=== PATIENT | female | born 1980 | race Caucasian/White ===

== ENCOUNTER 2018-06-25 13:10 | Inpatient (IN) | payer MEDICAID, OTHER ==
--- NOTE | 2018-06-25 13:10 | EDPHY ---
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 Prior history of suicide attempt. Denies current or recent attempt . History of bipolar disorder. Denies cutting burning behavior , or similar. No complaints of physical pain. REVIEW OF SYSTEMS: 10 systems reviewed and negative with the exception of the elements mentioned in the history of present illness PAST MEDICAL & SURGICAL HISTORY: Bipolar disorder. Transgender female. Hyperlipidemia. Type 2 diabetes SOCIAL HISTORY: Nonsmoker. No drug use PHYSICAL EXAM (Prior to examination, patient consented to physical exam, hands were washed and my usual and customary physical exam procedures followed) 1) GENERAL: Well-developed, well-nourished, alert and oriented. Appears to be in no acute distress. 2) HEAD: Normocephalic, atraumatic 3) HEENT: Pupils equal, round, reactive to light bilaterally. Sclera anicteric. 4) NECK: Full range of motion, no meningeal signs. 5) LUNGS: Clear auscultation bilaterally, no wheezes, no rhonchi, no retractions. 6) HEART: Regular rate and rhythm, no murmur, no heave, no gallop. 7) ABDOMEN: No guarding, no rebound, no focal tenderness, negative McBurney's, negative Bolden's, negative Rovsing's, negative peritoneal sign, 8) MUSCULOSKELETAL: Moving all extremities, no focal areas of tenderness, no obvious trauma. No peripheral edema or discoloration. 9) BACK: No CVA tenderness, no midline vertebral tenderness, no fluctuance, no step-off, no obvious trauma, no visual or palpable abnormality. 10) SKIN: No rash, no petechiae. 11) Psychiatric: Patient is oriented X 3, there is no agitation. Calm cooperative answering questions appropriately DIFFERENTIAL DIAGNOSIS: In no particular order including but not limited to suicidal ideation homicidal ideation, depression (Jessie,D Maria A) Constitutional: Initial Vital Signs Temperature (C) 36.8 C 06/25/18 13:21 Heart Rate 91 10/03/18 13:21 Respiratory Rate 16 06/25/18 13:21 Blood Pressure 133/93 H 06/25/18 13:21 O2 Sat (%) 94 06/25/18 13:21 O2 Delivery Mode Room Air Allergies/Adverse Reactions: No Known Allergies Allergy (Unverified 06/25/18 13:31) Home Medications: Medication Instructions Recorded ARIPiprazole [Abilify 10 mg (*)] 10 mg PO DAILY 06/25/18 Albuterol [Proventil Inhaler HFA 1 - 2 puffs IH Q4H PRN 06/25/18 (*)] Atorvastatin Calcium [Lipitor 20 20 mg PO HS 06/25/18 mg (*)] Dextroamphetamine/Amphetamine 30 mg PO DAILY 06/25/18 [Adderall Xr 30 mg Capsule] Dutasteride [Avodart 0.5 MG (*)] 0.5 mg PO DAILY 06/25/18 Estradiol Cypionate 0.6 mg IM FR 06/25/18 [Depo-Estradiol] Fenofibrate [Tricor 145 mg (*)] 145 mg PO DAILY 06/25/18 Fluticasone Propionate [Flonase 1 spray EACHNARE DAILY PRN 06/25/18 Allergy Relief] Insulin Aspart [novoLOG] 30 unit SC TIDMEAL PRN 06/25/18 Insulin Detemir [Levemir] 40 unit SQ BID 06/25/18 Sertraline HCl [Zoloft 100mg (*)] 100 mg PO DAILY 06/25/18 Sertraline HCl [Zoloft 25mg (*)] 25 mg PO DAILY 06/25/18 Spironolactone [Aldactone 50 MG 50 mg PO BID 06/25/18 (RX)] busPIRone [Buspar (*)] 15 mg PO BID 06/25/18 traZODone [traZODONE 100MG (*)] 100 mg PO HS 06/25/18 Medical Decision Making ED Course/Re-evaluation: 5:00 p.m.: Re-evaluation with serial exams. Patient has known history type 2 diabetes. Serum glucose is elevated. She has normal anion gap. Doubt DKA. Care of patient turned over to Dr. Sid Plaza at this time, awaiting mental health evaluation completion. (Sonja Roman) Other Provider: Care assumed from Dirk at 2:45 p.m. With plan for psychiatric evaluation , has been medically cleared. 1800: The patient will be transferred to [facility] for inpatient psychiatric hospital bed not available at this facility, in stable condition; accepting provider is Eulalio Simpson. EMTALA form completed. PHYSICIAN DOCUMENTATION: The patient was evaluated and managed by the Physician Photographic Lithographer and myself. I have reviewed the chart and agree with the findings and plan of care as documented. In addition, I examined the patient myself at 1800. History confirmed as worsening depression with history of bipolar. Physical findings as follows: Alert and cooperative eating and watching television. Patient is calm , states she understands the plan. Glucose 410 prior to transfer. Patient was given their usual insulin prior to transfer. I am the secondary supervising physician. (Sid Plaza) - Data Points Laboratory Results: Laboratory Results 06/25/18 13:15 06/25/18 13:15 06/25/18 06/25/18 06/25/18 18:19 13:15 13:15 WBC RBC Hgb Hct MCV MCH MCHC RDW Plt Count MPV Neut % (Auto) Lymph % (Auto) [place] % (Auto) Eos % (Auto) Baso % (Auto) Nucleat RBC Rel Count Absolute Neuts (auto) Absolute Lymphs (auto) Absolute Monos (auto) Absolute Eos (auto) Absolute Basos (auto) Absolute Nucleated RBC Immature Gran % Immature Gran # Sodium Potassium Chloride Carbon Dioxide Anion Gap BUN Creatinine Estimated GFR Glucose POC Glucose 410 mg/dL H mg/dL (70-100) Calcium Urine Opiates Screen NEGATIVE (NEGATIVE) Urine Barbiturates NEGATIVE (NEGATIVE) Ur Phencyclidine Scrn NEGATIVE (NEGATIVE) Ur Amphetamine Screen NON-NEGATIVE H (NEGATIVE) U Benzodiazepines Scrn NEGATIVE (NEGATIVE) Urine Cocaine Screen NEGATIVE (NEGATIVE) U Marijuana (THC) Screen NON-NEGATIVE H (NEGATIVE) Ethyl Alcohol < 10 mg/dL mg/dL (0-10) 06/25/18 06/25/18 13:15 13:15 WBC 13.02 10^3/uL H 10^3/uL (3.80-9.50) RBC 5.25 10^6/uL 10^6/uL (4.18-5.33) Hgb 15.8 g/dL g/dL (12.6-16.3) Hct 44.8 % % (38.0-47.0) MCV 85.3 fL fL (81.5-99.8) MCH 30.1 pg pg (27.9-34.1) MCHC 35.3 g/dL g/dL (32.4-36.7) RDW 12.7 % % (11.5-15.2) Plt Count 195 10^3/uL 10^3/uL (150-400) MPV 11.2 fL fL (8.7-11.7) Neut % (Auto) 78.5 % H % (39.3-74.2) Lymph % (Auto) 15.4 % % (15.0-45.0) [place] % (Auto) 4.5 % % (4.5-13.0) Eos % (Auto) 0.6 % % (0.6-7.6) Baso % (Auto) 0.5 % % (0.3-1.7) Nucleat RBC Rel Count 0.0 % % (0.0-0.2) Absolute Neuts (auto) 10.22 10^3/uL H 10^3/uL (1.70-6.50) Absolute Lymphs (auto) 2.00 10^3/uL 10^3/uL (1.00-3.00) Absolute Monos (auto) 0.58 10^3/uL 10^3/uL (0.30-0.80) Absolute Eos (auto) 0.08 10^3/uL 10^3/uL (0.03-0.40) Absolute Basos (auto) 0.07 10^3/uL 10^3/uL (0.02-0.10) Absolute Nucleated RBC 0.00 10^3/uL 10^3/uL (0-0.01) Immature Gran % 0.5 % % (0.0-1.1) Immature Gran # 0.07 10^3/uL 10^3/uL (0.00-0.10) Sodium 133 mEq/L L mEq/L (135-145) Potassium 4.2 mEq/L mEq/L (3.3-5.0) Chloride 101 mEq/L mEq/L (97-110) Carbon Dioxide 23 mEq/l mEq/l (22-31) Anion Gap 9 mEq/L mEq/L (8-16) BUN 16 mg/dL mg/dL (7-23) Creatinine 1.1 mg/dL H mg/dL (0.6-1.0) Estimated GFR 55 Glucose 237 mg/dL H mg/dL (70-100) POC Glucose Calcium 9.1 mg/dL mg/dL (8.5-10.4) Urine Opiates Screen Urine Barbiturates Ur Phencyclidine Scrn Ur Amphetamine Screen U Benzodiazepines Scrn Urine Cocaine Screen U Marijuana (THC) Screen Ethyl Alcohol Medications Given: Discontinued Medications Insulin Human Lispro (Humalog Lispro) 30 unit SC EDNOW ONE Stop: 06/25/18 18:32 Last Admin: 06/25/18 18:32 Dose: 30 units Point of Care Test Results: Chemistry 06/25/18 18:19 POC Glucose 410 mg/dL H mg/dL (70-100) Departure - Departure Disposition: [facility] IP Clinical Impression: Suicidal ideation Bipolar disorder Qualifiers: Active/Remission status: currently active Current bipolar episode type: depressed Current episode severity: moderate Qualified Code(s): F31.32 - Bipolar disorder, current episode depressed, moderate Condition: Fair
[2018-06-25 13:51] LABS: PLATELET COUNT 195 10^3/uL (150-400)
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
--- NOTE | 2018-06-25 17:48 | ASMTTCLDSP ---
TLC Discharge Disposition Disposition: Answers: Admit Disposition Notes: Notes: In consultation with [facility] and on-call HEAD STRENGTH AND CONDITIONING COACH, Eulalio Lujan both concurred that pt appears to meet 27-65 criteria requiring psychiatric hospitalization as pt appears to be at risk of harm to self due to a mental illness condition. Pt was given the 3N prohibited belongings list while in the ED. Was patient given the Answers: Yes Inpatient Behavioral Health Prohibited Belongings List while in the ED? For inpatient Eulalio Good APN admission, the following psychiatrist agreed to accept patient for admission to Behavioral Health ([facility]): Type of Hold: Answers: M1/72-hour Hold Hold initiated by: Answers: Other Notes: Mental Health Dispatch Supervisor Date Signed: 06/25/2018 05:48 PM Electronically Signed By:Mis Zapata
[2018-06-25] MEDS ORDERED: INSULIN LISPRO 100 UNIT/ML SC ONE ×2 (18:24→18:31)
[2018-06-25] MEDS ORDERED: LORazepam 0.5 MG TAB PO PRN (21:30)
[2018-06-25] MEDS ORDERED: ACETAMINOPHEN 325 MG TAB PO PRN (21:30)
[2018-06-25] MEDS ORDERED: NICOTINE POLACRILEX 2 MG GUM B PRN (21:30)
[2018-06-25] MEDS ORDERED: OLANZapine DISINTEGR 5 MG TAB PO PRN (21:30)
[2018-06-25] MEDS ORDERED: MAG HYDROX/AL HYDROX/SIMETH 30 ML UDCUP PO PRN (21:30)
[2018-06-25] MEDS ORDERED: MAGNESIUM HYDROXIDE 30 ML UDCUP PO PRN (21:30)
[2018-06-25] MEDS ORDERED: ALBUTEROL 60 PUFFS/8 GM MDI IH PRN (21:32)
[2018-06-25] MEDS ORDERED: NON-FORMULARY NEW DRUG (Insulin Aspart [Novolog] 30 UNIT) SC PRN (21:32)
[2018-06-25] MEDS: busPIRone 15 MG TAB PO SCH (22:01)
[2018-06-25] MEDS: traZODone 100 MG TAB PO SCH (22:02)
[2018-06-25] MEDS: SPIRONOLACTONE 25 MG TAB PO SCH (22:02)
[2018-06-25] MEDS ORDERED: Insulin Aspart [Novolog Flexpen] SC PRN (23:30)
[2018-06-26] MEDS ORDERED: INSULIN ASPART NovoLOG 70/30 100 UNITS/ML SYR SC SCH (08:00)
[2018-06-26] MEDS: SERTRALINE HCL 100 MG TAB PO SCH (08:44)
[2018-06-26] MEDS: SERTRALINE HCL 25 MG TAB PO SCH (08:44)
[2018-06-26] MEDS: busPIRone 15 MG TAB PO SCH ×2 (08:44→20:12)
[2018-06-26] MEDS: FENOFIBRATE 145 MG TAB PO SCH (08:44)
[2018-06-26] MEDS: SPIRONOLACTONE 25 MG TAB PO SCH ×2 (08:44→20:12)
[2018-06-26] MEDS: ARIPiprazole 5 MG TAB PO SCH (08:44)
[2018-06-26] MEDS: DUTASTERIDE 0.5 MG CAP PO SCH (08:44)
[2018-06-26] MEDS ORDERED: FLUTICASONE NASAL 120 SPRAYS/16 GM MDI EACHNARE PRN (09:00)
[2018-06-26] MEDS ORDERED: ARIPiprazole 10 MG TAB PO SCH (09:00)
[2018-06-26] MEDS ORDERED: NON-FORMULARY NEW DRUG (Insulin Detemir [Levemir] 40 UNIT) SQ SCH (09:00)
--- NOTE | 2018-06-26 09:06 | ASMTBHMTP ---
Master Treatment Plan Master Treatment Plan Answers: Depressed Mood with for: Suicidal Ideation Date: 06/26/2018 Diagnosis on Admission: Bipolar I, current or most recent episode, depressed, severe 296.53 (F.31.4) Expected length of stay: 3-5 Reason for admission: Notes: The patient stated, "I'm having suicidal impulses. In April, I was hospitalized at [facility]. I had been feeling so much better until Saturday. I was in a really good mood and then I thought this is going to be as good as it gets so why not end it now." The impulse "felt good and compelling which is different than how I felt in the past." The patient's plan is to use nitrogen gas and "make it look like an accident." The patient reported that she also felt that there "would be a lot" she's "missing out on." She stated, "I've had this thought many times. I couldn't combat it." The patient contacted [place] [facility] who arranged transport for her to [facility] ED for further evaluation. Patient's stated presenting problems: Notes: The patient reported a history or anxiety and depression. 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 The patient has worked for [employer] for 1.5 years. Patient's goals for treatment: Notes: The patient stated, "Not be suicidal or have suicidal thoughts." The patient acknowledged that this is a assisted goal and discussed with this chief writer the possibility of increasing the patient's capacity to manage her suicidal ideation. Patient's strengths: Notes: The patient stated, "kind, smart, funny." Identify supports outside of hospital: Notes: The patient reported becoming a new client with [facility]; working with Kasie Araiza and awaiting provider assignment following the "getting started" mandatory class. The patient stated that her girlfriend is also supportive as well as indicated that she has her own "MH issues." Discharge criteria: Notes: Suicidal ideation will resolve and patient will have a plan to safely manage recurrent suicidal ideation. Initial disposition plan/considerations: Notes: The patient will discharge to her home in [place], [place]. Master Treatment Plan Required Signatures Psychiatrist signature: Answers: Psychiatrist: RN on-shift signature: Answers: RN: Patient signature: Answers: Patient: Date Signed: 06/26/2018 09:06 AM Electronically Signed By:Jovanna Hart
[2018-06-26] MEDS ORDERED: INSULIN LISPRO 100 UNIT/ML SC PRN (12:00)
--- NOTE | 2018-06-26 12:17 | PDMN ---
Medical Necessity Medical necessity: Pt meets IP criteria per & DURAN [id number]; est los >2 mn for eval/tx of Bipolar Disorder w/recent severe episode of depression & suicidal ideations; pt on M1 hold for SI w/plan & intention to harm self; admit for further monitoring, safety, med management & stabilization; per CM report & order 06/25/18
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
--- NOTE | 2018-06-26 15:48 | BCON ---
INTERNAL MEDICINE CONSULTATION DATE OF CONSULTATION: 06/26/2018 REFERRING PHYSICIAN: Dr. Pelaez REASON FOR REFERRAL: Medical clearance for inpatient behavioral health stay. HISTORY OF PRESENT ILLNESS: This patient came to the emergency department by ambulance from a mental health clinic with suicidal ideation. She was evaluated by the mental health team and admitted for further psychiatric care. She is currently without any acute complaints. PAST MEDICAL HISTORY: 1. Bipolar disorder. 2. Diabetes mellitus type 2. 3. Dyslipidemia. 4. Transgender female. 5. Alopecia. MEDICATIONS: Prior to admission: 1. Albuterol metered-dose inhaler 2 puffs q.4 hours p.r.n. 2. Fluticasone 1 spray each naris daily p.r.n. 3. Dextroamphetamine/amphetamine 30 mg p.o. daily. 4. Aripiprazole 10 mg p.o. daily. 5. Buspirone 15 mg p.o. twice daily. 6. Dutasteride 0.5 mg p.o. daily. 7. Atorvastatin 20 mg p.o. at bedtime. 8. Estradiol cypionate 0.6 mg intramuscular every Saturday. 9. Insulin detemir 48 units subcutaneous twice daily. 10. Insulin Aspart 30 units subcutaneous three times daily with meals. 11. Spironolactone 50 mg p.o. twice daily. 12. Trazodone 100 mg p.o. at bedtime. 13. Fenofibrate 145 mg p.o. daily. 14. Sertraline 125 mg p.o. daily. ALLERGIES: There are no known drug allergies. SOCIAL HISTORY: She lives by herself. She is a nonsmoker and nondrinker. 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 FAMILY HISTORY: Noncontributory. PHYSICAL EXAM: VITAL SIGNS: Blood pressure is 120/89, heart rate is 82, respiratory rate is 14, oxygen saturation is 96% on room air, temperature is 36.5 degrees centigrade. Weight is 99.8 kg for a body mass index of 31.6. GENERAL: This is a well-nourished, well-developed person, obese, napping in bed , easily awakened, cooperative, and in no acute distress. HEENT: Male pattern baldness. Extraocular movements are intact. Pupils are equal, round, reactive to light. Mucous membranes are moist. Dentition is in good condition. NECK: Supple. HEART: There is a regular rate and rhythm with no murmurs, rubs, or gallops. LUNGS: Clear to auscultation bilaterally. ABDOMEN: Benign. EXTREMITIES: There is no cyanosis, clubbing, or edema. NEUROLOGIC: Alert and oriented x3. Cranial nerves 2-12 are grossly intact. There is no focal weakness. Sensation is intact to light touch. LABORATORY STUDIES: From the emergency department: CBC showed an elevated white blood cell count at 13.02. There was no left shift and the elevation was all absolute neutrophils. Otherwise it was within normal limits. Serum chemistry showed hyponatremia with a sodium of 133 and renal insufficiency with a creatinine of 1.1 and an estimated GFR of 55. Glucose was elevated at 237. Since then, glucose has ranged from 241 to 410. Fasting today was 265. Toxicology screen in the serum was negative for ethyl alcohol and the urine was non-negative for amphetamines and marijuana, but was otherwise negative for substances of abuse. ASSESSMENT/RECOMMENDATIONS: 1. Mental health issues pending further evaluation and management per Psychiatry and the mental health team. 2. Diabetes mellitus type 2. I have changed the insulin Aspart order from 30 units three times daily before meals p.r.n. to 30 mg three times daily before meals scheduled. I will not put in a sliding scale at present, but if she has consistently elevated glucose, it would be appropriate to start. 3. Hyponatremia. I have ordered a repeat BMP for tomorrow morning as well as a urine and serum osmolality. Potentially the hyponatremia is related to diuretic use versus an adverse effect of sertraline, and I am not sure that associated labs will answer that question, but if hyponatremia persists, we will evaluate further. 4. Alopecia. Continue dutasteride. 5. Renal insufficiency, unclear chronicity. Repeat BMP in the morning. Per BUN and creatinine ratio, she does not appear to be dehydrated nor is she currently tachycardic or hypotensive. 6. Obesity. Consider avoiding medications that would cause further weight gain , though psychosocial stabilization takes first priority at present. 7. Dyslipidemia, continue current medications. 8. Polypharmacy. There are significant interactions among the serotonergic drugs that she is taking, buspirone, sertraline and trazodone. I leave it to the discretion of Psychiatry whether or not this is significant in her case. I see no medical contraindications to this patient's continued stay on the inpatient behavioral health unit or to any psychiatric medications or procedures. Thank you very much for including me in the care of this patient and please do not hesitate to contact me or the hospitalist service should there be need for further medical evaluation. /[id number]/MODL MTDD
[2018-06-26] MEDS: INSULIN LISPRO 100 UNIT/ML SC SCH (18:14)
[2018-06-26] MEDS: traZODone 100 MG TAB PO SCH (20:10)
[2018-06-26] MEDS: INSULIN GLARGINE 100 UNITS/ML SYRINGE SC SCH (20:13)
[2018-06-26] MEDS ORDERED: ATORVASTATIN CALCIUM 20 MG TAB PO SCH (21:00)
[2018-06-27 06:50] VITALS: BP 144/102
[2018-06-27] MEDS: DUTASTERIDE 0.5 MG CAP PO SCH (08:21)
[2018-06-27] MEDS: FENOFIBRATE 145 MG TAB PO SCH (08:21)
[2018-06-27] MEDS: busPIRone 15 MG TAB PO SCH (08:21)
[2018-06-27] MEDS: SERTRALINE HCL 100 MG TAB PO SCH (08:22)
[2018-06-27] MEDS: SERTRALINE HCL 25 MG TAB PO SCH (08:22)
[2018-06-27] MEDS: ARIPiprazole 5 MG TAB PO SCH (08:22)
[2018-06-27] MEDS: INSULIN GLARGINE 100 UNITS/ML SYRINGE SC SCH (08:22)
[2018-06-27] MEDS: SPIRONOLACTONE 25 MG TAB PO SCH (08:22)
[2018-06-27] MEDS: INSULIN LISPRO 100 UNIT/ML SC SCH (08:30)
[2018-06-27] MEDS ORDERED: ESTRADIOL CYPIONATE IM SCH (09:00)
--- NOTE | 2018-06-27 09:13 | BDS ---
REASON FOR ADMISSION: From the ED note dated 06/25/2018, the patient arrived to the ED via ambulance after a mental health evaluation complaining of suicidal ideation with plan to kill herself with "nitrogen gas." The patient is a transgender female currently undergoing male to female transition. The patient was admitted involuntarily on an M1 hold due to being a danger to herself. The patient is admitted for safety crisis stabilization and medication management. ADMITTING DIAGNOSES: Bipolar II disorder, mild, depressed, with anxious distress. Posttraumatic stress disorder. ADMISSION PHYSICAL EXAM: The patient was seen by Dr. Davila on 06/26/2018, for internal medicine consultation for medical clearance for inpatient Behavioral Health stay. Dr. Davila reported he saw no medical contraindications to the patient's continued stay on the inpatient behavioral health unit or to any psychiatric medications or procedures. For further details, please refer to Dr. Davila's note dated 06/26/2018. ADMISSION LABS: From the emergency department: CBC showed an elevated white blood cell count at 13.02. There was no left shift and the elevation was all absolute neutrophils, otherwise it was within normal limits. Serum chemistry showed hyponatremia with a sodium of 133, and renal insufficiency with a creatinine of 1.1, and an estimated GFR of 55. Glucose was elevated at 237; since then, glucose has ranged from 241 to 410, fasting today was 265. Toxicology screen in the serum was negative for ethyl alcohol and the urine was non-negative for amphetamines and marijuana, but otherwise negative for substances of abuse. MAJOR PROCEDURES OR TESTS: None. HOSPITAL COURSE: The most prominent symptoms and behaviors while the patient was here were mild anxiety. Treatment modalities utilized were milieu and group therapy. The patient's outpatient medications were continued at patient' s request. There was 1 change. The patient's current Abilify 10 mg p.o. daily was lowered to 5 mg p.o. daily as patient reported symptoms of akathisia. Abilify 5 mg p.o. daily was tolerated with no report of side effects and with good response. The patient has improved considerably with no signs of psychiatric symptoms and no psychiatric symptoms expressed at discharge. The patient reports she has improved since admission. States to be in stable condition. Feels safe to discharge and she contracts for safety. Patient's response to treatment was good. There were no adverse or unexpected results of treatment. The patient was safe throughout her stay, active in treatment, attended and engaged in groups, and was appropriate with staff and other patients. The patient met with treatment team prior to discharge to assess readiness to discharge and reviewed discharge plan. The treatment team consensus is the patient is in stable condition, has a safe discharge plan, and is ready to discharge today. CONDITION AT DISCHARGE: Patient is in stable condition and is no longer a danger to self or others, and is not gravely disabled due to mental illness. Patient is no longer in need of inpatient level of care, and can be safely and effectively treated within the community. The patients level of risk at time of discharge is low. MSE: The patient is casually dressed and with good hygiene , and looks stated age. Patient is sitting, posture is upright, and position is relaxed. Patient appears awake, alert, and responds appropriately and reasonably during interview. Patient is engaged, relates well to interviewer, and emotional facial expression is appropriate to situation and changes appropriately with topic. Patient is cooperative, makes comfortable eye contact , and movements are voluntary, deliberate, coordinated, and smooth and even with no inappropriate movements. Patient makes laryngeal sounds effortlessly and shares conversation appropriately; pace of conversation is appropriate, and stream of talking is fluent; articulation is clear and understandable; word choice is effortless and appropriate for education level; completes sentences, occasionally pausing to think; rate and volume are appropriate for interview and setting. Patient reports mood as euthymic. Patients affect is stable with full variable range, congruent with mood, and appropriate to speech and circumstances. Patient has linear and logical thinking, with no loose associations, tangential thought, thought blocking, concrete thinking, or any other signs of formal thought disorder. Patient denies suicidal and homicidal ideation, and denies hallucinations and delusions. Patient appears to be a reliable historian with sound judgement and good insight into current condition. Patient has no apparent dysfunction in recent or remote memory noted , and no evidence of gross cognitive dysfunction noted at any point during the interview. DISCHARGE DIAGNOSES: Bipolar II disorder, mild, depressed, with anxious distress. Posttraumatic stress disorder. CURRENT MEDICATIONS: After reviewing options, risks, and benefits, the patient agrees to continue current medications. Current medications are as follows: Abilify 5 mg p.o. daily, Zoloft 125 mg p.o. daily, TriCor 145 mg p.o. daily, trazodone 100 mg p.o. q.h.s., spironolactone 50 mg p.o. b.i.d., NovoLog 30 units subcutaneous 3 times daily with meals as needed, insulin detemir 40 units subcutaneous b.i.d., Depo estradiol 0.6 mg IM FR, Avodart 0.5 mg p.o. daily, BuSpar 15 mg p.o. b.i.d., Lipitor 20 mg p.o. q.h.s., albuterol 1-2 puffs IH q.4 hours p.r.n., Flonase 1 spray each naris daily as needed. The patient requests prescription for Abilify 5 mg p.o. daily at time of discharge; prescription for 30 days is provided. The prescription is reviewed with the patient at time of discharge to ensure accuracy and patient understanding. The patient's medications are reviewed with patient at discharge to ensure accuracy. DISPOSITION: Patient left hospital independently and voluntarily with plans to return home to [place], [place]. FOLLOWUP: [facility] compliance coordinator reports the appropriate outpatient follow-up services have been established and outpatient appointments have been scheduled. The patient received written instructions with times and dates of outpatient follow-up appointments. The following follow-up recommendations were provided to the patient at discharge: Continue psychotropic medications as prescribed and attend appointments as scheduled. Report any side effects to a psychiatric outpatient provider, a primary care provider, or other health child care team lead. Address any questions or problems concerning the psychotropic medications with a psychiatric outpatient provider, a primary care provider, or other health child care team lead. Contact [facility] or [facility], or go to the nearest emergency room, if you are ever a danger to yourself/others, or unable to care for yourself. As soon as possible, establish a routine medication management treatment with a psychiatric provider, establish routine therapy appointments, and follow-up with a primary care provider. LEGAL COURSE: The patient was admitted on an M1 hold for involuntary inpatient psychiatric hospitalization. Patient discharged today independently and voluntarily. ATTITUDE AT TIME OF DISCHARGE: The patients attitude was positive at time of discharge, and patient reports looking forward to discharging today. The patient reports she feels safe to discharge, is no longer a danger to herself or others, is in stable condition, and contracts for safety. Patient states she will continue medications as prescribed, and establish medication management treatment with an outpatient provider after discharge. Patient reports she understands the information that has been provided to her, and she understands, accepts, and agrees to psychotropic medications. Patient describes internal protective factors as the coping skills she has learned while hospitalized here, and she plans to continue to practice these coping skills after discharge. Patient reports external protective factors as a lot of life left to live; family and friends. Patient describes looking forward to getting back to work after discharge. Patient describes future goal as continue transition (male to female) that started in October. Patient reports she has completed Safety/Wellness Plan and has reviewed Safety/Wellness Plan with her nurse. Patient states her family and friends look forward to her discharging. LABS AND STUDIES: There were no pending labs and studies at time of discharge. ADVANCE DIRECTIVES: There were no advance directives on file, and patient was full code during this hospitalization. The following psychotropic medication treatment informed consent and recommendations were provided to the patient at time of discharge. Patient reports she understands, accepts, and agrees to the information that has been provided. PSYCHOTROPIC MEDICATION TREATMENT INFORMED CONSENT and RECOMMENDATIONS: Review nature of condition, diagnosis, and prognosis. Review nature and purpose of psychotropic medication treatment. Review type of psychotropic medications being prescribed. Review risk and benefits of psychotropic medication treatment. Review probable length of time will need to take medications. Review risk and benefits of not undergoing psychotropic medication treatment. Review alternative treatments to psychotropic medications. Review psychotropic medications contraindications, side effects, and importance of reporting any side effects to a psychiatric provider, primary care provider, or other health child care team lead. Review importance of her asking a psychiatric provider or primary care provider any questions or problems concerning the psychotropic medications. Review importance of reporting to a psychiatric provider, primary care provider, or other health child care team lead if she plans to or becomes . Review safety plan and the importance to contact [facility] or [facility] , or go to the nearest emergency room, if ever a danger to yourself/others, or unable to care for yourself. Recommend upon discharge to establish routine medication management treatment with a psychiatric provider, establish routine therapy appointments, and follow-up with a primary care provider. Verify patient understands, accepts, and agrees to the information that has been provided. SUICIDE ASSESSMENT FIVE-STEP EVALUATION AND TRIAGE (1) RISK FACTORS: (a) Suicidal behavior: attempted in 1999 by overdose on OTC (b) Current/past psychiatric disorders: bipolar II disorder (c) Castillo symptoms: none expressed or exhibited at time of discharge (d) Family history: none (e) Precipitants/Stressors/Interpersonal: none (f) Change in treatment: discharge from psychiatric hospital (g) Access to firearms: none (2) PROTECTIVE FACTORS: (a) Internal: coping skills learned while hospitalized (b) External: future, family, and friends (3) SUICIDAL INQUIRY: (a) Ideation: none (b) Plan: none (c) Behaviors: none; patient was safe throughout stay with no suicidal or parasuicidal behaviors (d) Intent: none (4) RISK LEVEL: Low: modifiable risk factors, strong protective factors; no suicidal or self-injurious ideation. Intervention: treatment plan to reduce symptoms including medications and therapy, provided emergency/crisis numbers, and established follow-up plan. /[id number]/MODL MTDD
== END 2018-06-27 11:20 | disposition home or self-care (01) | DRG 885 ==
LOC: BBEH 20:15
PROVIDERS: ADMIT Psychiatry & Neurology Psychiatry; ATTEND Psychiatry & Neurology Psychiatry
DX: F31.31 Bipolar disorder, current episode depressed, mild (principal); F43.10 Post-traumatic stress disorder, unspecified; E87.1 Hypo-osmolality and hyponatremia; N28.9 Disorder of kidney and ureter, unspecified; E11.9 Type 2 diabetes mellitus without complications; E78.5 Hyperlipidemia, unspecified; L65.9 Nonscarring hair loss, unspecified; F64.9 Gender identity disorder, unspecified; E66.9 Obesity, unspecified; Z68.31 Body mass index [BMI] 31.0-31.9, adult; Z79.4 Long term (current) use of insulin; Z23 Encounter for immunization
CPT/HCPCS: 80305; G0008; G0480; J1815